=== PATIENT | female | born 1970 | race Two or more races ===

== ENCOUNTER 2019-09-30 18:19 | Emergency (ER) | payer MEDICAID ==
[~2019-09-30] VITALS: Ht 160 cm; Wt 88.0 kg
[~2019-09-30 18:19] MED LIST: MULTTAB61 PO
[2019-09-30 20:30] LABS: Urine Bacteria MANY /hpf (None Seen); Urine Blood Negative /uL (Negative); Urine Mucus FEW (None Seen); Urine Specific Gravity 1.005 (1.001-1.035); Urine WBC 11 /hpf (0 - 5)
[2019-09-30 23:25] VITALS: BP 139/81
== END 2019-09-30 23:28 | disposition home or self-care (01) ==
LOC: ER 18:19
DX: N39.0 Urinary tract infection, site not specified (principal); E78.5 Hyperlipidemia, unspecified
CPT/HCPCS: 81001; 93005